=== PATIENT | female | born 1985 | race Caucasian/White ===

== ENCOUNTER → 2017-10-19 | Outpatient (CLI) | payer BC, OTHER ==
[~2017-10-19] MED LIST: ABILIFY5 MG PO; AMBIEN10 M1 PO; AMBIEN5 MG PO; AMOXICILLIN500 M2 PO; AMOXIL500 MG PO; ANAPROX DS550 MG PO; ANTIVERT25 MG PO; ATIVAN1 MG PO; BACTRIM DS 8001 TA1 PO; BIRTH CONTROL1 EAC1 PO; CELEXA10 MG PO; CELEXA40 MG PO; CLARITIN10 MG PO; CYCLOBENZAPRINE5 M3 PO; EFFEXOR XR37.5 M1 PO; FLEXERIL5 MG PO; FLONASE 0.05% 121 EA NAS; HYDROCODONE BIT1 T11 PO; HYDROCODONE PO; IBUPROFEN 30 M800 MG PO; LEVOFLOXACIN500 MG PO; LIDEX0.05% T; MACROBID100 M1 PO; MEDROL DOSEPAK4 MG PO; MOTRIN800 MG PO; Motrin,Rufen800 MG PO; NAPROSYN500 MG PO; NORFLEX100 MG PO; PARAFON FORTE500 MG PO; PYRIDIUM100 MG PO; PYRIDIUM200 M1 PO; ROBAXIN750 MG PO; SEROQUEL25 MG PO; SEROQUEL300 MG PO; TESSALON PERLE100 M1 PO; TOPAMAX2 MG PO; TOPAMAX50 MG PO; TRAZODONE50 MG PO; VICODIN 500 MG-1 TAB PO; ZITHROMAX250 MG PO; ZOFRAN ODT4 MG SL; ZYRTEC10 MG PO
== END ==
LOC: RAD 19:30
DX: M25.511 Pain in right shoulder (principal)

== ENCOUNTER 2017-11-23 01:22 | Emergency (ER) | payer BC, OTHER ==
[~2017-11-23] VITALS: Wt 63.5 kg
[2017-11-23 01:48] LABS: BASO # 0.1 10*3/uL (0.0-0.1); BASO % 0.6 % (0.0-1.0); EOS # 0.1 10*3/uL (0.0-0.4); EOS % 1.6 % (1.0-4.0); HEMATOCRIT 36.8 % (37.0-47.0); HEMOGLOBIN 12.7 g/dl (12.0-16.0); LYMPH # 2.3 10*3/uL (1.3-4.4); LYMPH % 27.8 % (27.0-41.0); MEAN CELL VOLUME 89.1 fl (81.0-99.0); MEAN CORPUSCULAR HGB 30.8 pg (27.0-31.0); MEAN CORPUSCULAR HGB CONC 34.5 g/dl (33.0-37.0); MEAN PLATELET VOLUME 9.5 fl (9.6-12.3); MONO # 0.8 10*3/uL (0.1-1.0); MONO % 9.2 % (3.0-9.0); NEUT % 60.7 % (47.0-73.0); PLATELET COUNT AUTOMATED 206 10*3/uL (130-400); RED BLOOD COUNT 4.13 10*6/uL (4.10-5.10); RED CELL DISTRI WIDTH 12.3 % (0-14.5); WHITE BLOOD COUNT 8.2 10*3/uL (4.8-10.8)
[2017-11-23 02:03] LABS: BUN 17 mg/dl (7-24); CHLORIDE 106 mmol/L (98-107); CREATININE 0.83 mg/dL (0.55-1.02); SODIUM 140 mmol/L (136-145)
[2017-11-23 02:06] LABS: ETHYL ALCOHOL < 3.0 mg/dl (<3)
[2017-11-23 02:08] LABS: B-hCG (QUALITATIVE) NEGATIVE (NEGATIVE)
[2017-11-23 02:09] LABS: ACETAMINOPHEN (TYLENOL) < 2.0 ug/ml (10-30)
[2017-11-23 04:36] LABS: BILIRUBIN NEGATIVE (NEGATIVE); BLOOD 3+ (NEGATIVE); CLARITY SL CLOUDY (CLEAR); COLOR YELLOW (YELLOW); GLUCOSE NEGATIVE (NEGATIVE); KETONE 1+ (NEGATIVE); LEUKO ESTERASE NEGATIVE (NEGATIVE); NITRITE NEGATIVE (NEGATIVE); SPECIFIC GRAVITY 1.025 (1.005-1.030); UROBILINOGEN 0.2 E.U./dl (0.2-1.0)
[2017-11-23 04:45] LABS: URINE AMPHETAMINES < 1000 (1000ng/ml); URINE BARBITURATES < 200 (200ng/ml); URINE BENZODIAZEPINES < 200 (200ng/ml); URINE CANNABINOIDS (THC) < 50 (50ng/ml); URINE COCAINE < 300 (300ng/ml); URINE METHADONE < 300 (300ng/ml); URINE OPIATES < 300 (300ng/ml)
[2017-11-23 04:46] LABS: BACTERIA 2+; EPITHELIAL CELLS 25-30; WBC 0-2 wbc/hpf (0-5)
[2017-11-23 04:47] LABS: URINE PHENCYCLIDINE < 25 (25ng/ml)
== END 2017-11-23 10:50 | disposition home or self-care (01) ==
LOC: ED 01:22
PROVIDERS: Emergency Medicine Emergency Medical Services
DX: F32.9 Major depressive disorder, single episode, unspecified (principal); Z79.899 Other long term (current) drug therapy

== ENCOUNTER 2017-12-12 14:24 | Emergency (ER) | payer BC, OTHER ==
[~2017-12-12] VITALS: Ht 165.1 cm; Wt 63.5 kg
[2017-12-12] MEDS ORDERED: BUSPAR5 MG PO (14:32)
[2017-12-12] MEDS ORDERED: AMOXICILLIN500 M2 PO (15:57)
[2017-12-12] MEDS ORDERED: ZYRTEC10 MG PO (15:57)
== END 2017-12-12 16:00 | disposition home or self-care (01) ==
LOC: ED 14:24
DX: J01.90 Acute sinusitis, unspecified (principal); Z90.89 Acquired absence of other organs; Z79.899 Other long term (current) drug therapy

== ENCOUNTER 2018-05-31 23:09 | Emergency (ER) | payer BC ==
[~2018-05-31] VITALS: Ht 165.1 cm; Wt 62.1 kg
[~2018-05-31 23:09] MED LIST changes: +BUSPAR5 MG PO
[2018-05-31 23:41] LABS: BASO # 0.1 10*3/uL (0.0-0.1); BASO % 1.3 % (0.0-1.0); EOS # 0.2 10*3/uL (0.0-0.4); EOS % 4.1 % (1.0-4.0); HEMATOCRIT 35.1 % (37.0-47.0); HEMOGLOBIN 11.8 g/dl (12.0-16.0); LYMPH # 1.8 10*3/uL (1.3-4.4); MEAN CELL VOLUME 90.7 fl (81.0-99.0); MEAN CORPUSCULAR HGB 30.5 pg (27.0-31.0); MEAN CORPUSCULAR HGB CONC 33.6 g/dl (33.0-37.0); MEAN PLATELET VOLUME 10.2 fl (9.6-12.3); MONO # 0.4 10*3/uL (0.1-1.0); MONO % 9.6 % (3.0-9.0); NEUT # 2.1 10*3/uL (2.3-7.9); NEUT % 45.8 % (47.0-73.0); PLATELET COUNT AUTOMATED 171 10*3/uL (130-400); RED BLOOD COUNT 3.87 10*6/uL (4.10-5.10); RED CELL DISTRI WIDTH 12.4 % (0-14.5); WHITE BLOOD COUNT 4.6 10*3/uL (4.8-10.8)
[2018-05-31 23:53] LABS: BILIRUBIN NEGATIVE (NEGATIVE); BLOOD NEGATIVE (NEGATIVE); CLARITY SL CLOUDY (CLEAR); COLOR YELLOW (YELLOW); GLUCOSE NEGATIVE (NEGATIVE); KETONE NEGATIVE (NEGATIVE); LEUKO ESTERASE 1+ (NEGATIVE); NITRITE NEGATIVE (NEGATIVE); UROBILINOGEN 0.2 E.U./dl (0.2-1.0)
[2018-05-31 23:57] LABS: ALBUMIN 3.6 gm/dl (3.1-4.5); ALKALINE PHOSPHATASE 45 U/L (45-117); BUN 10 mg/dl (7-24); CHLORIDE 112 mmol/L (98-107); CREATININE 0.75 mg/dL (0.55-1.02); POTASSIUM 4.2 mmol/L (3.5-5.1); SGOT/AST 5 IU/L (3-35); SGPT/ALT 14 U/L (12-78); SODIUM 144 mmol/L (136-145); TOTAL PROTEIN 6.7 gm/dL (6.4-8.2)
[2018-05-31 23:59] LABS: BETA-HCG, QUANT < 1.0 mIU/mL (1-3)
[2018-06-01] MEDS ORDERED: SEPTDS PO (00:16)
== END 2018-06-01 00:35 | disposition home or self-care (01) ==
LOC: ED 23:09
PROVIDERS: Student in an Organized Health Care Education/Training Program
DX: N39.0 Urinary tract infection, site not specified (principal); F17.200 Nicotine dependence, unspecified, uncomplicated; Z79.899 Other long term (current) drug therapy; Z98.890 Other specified postprocedural states

== ENCOUNTER 2018-06-29 18:16 | Emergency (ER) | payer BC ==
[~2018-06-29] VITALS: Ht 165.1 cm; Wt 65.8 kg
[~2018-06-29 18:16] MED LIST changes: +SEPTDS PO
[2018-06-29 18:35] LABS: BASO % 0.9 % (0.0-1.0); EOS # 0.1 10*3/uL (0.0-0.4); EOS % 2.5 % (1.0-4.0); HEMATOCRIT 33.8 % (37.0-47.0); HEMOGLOBIN 11.4 g/dl (12.0-16.0); LYMPH # 1.6 10*3/uL (1.3-4.4); LYMPH % 36.5 % (27.0-41.0); MEAN CELL VOLUME 89.4 fl (81.0-99.0); MEAN CORPUSCULAR HGB 30.2 pg (27.0-31.0); MEAN CORPUSCULAR HGB CONC 33.7 g/dl (33.0-37.0); MEAN PLATELET VOLUME 9.5 fl (9.6-12.3); MONO # 0.4 10*3/uL (0.1-1.0); MONO % 9.9 % (3.0-9.0); NEUT # 2.2 10*3/uL (2.3-7.9); PLATELET COUNT AUTOMATED 176 10*3/uL (130-400); RED BLOOD COUNT 3.78 10*6/uL (4.10-5.10); RED CELL DISTRI WIDTH 12.3 % (0-14.5); WHITE BLOOD COUNT 4.3 10*3/uL (4.8-10.8)
[2018-06-29 18:51] LABS: ALBUMIN 3.8 gm/dl (3.1-4.5); ALKALINE PHOSPHATASE 49 U/L (45-117); BUN 8 mg/dl (7-24); CHLORIDE 109 mmol/L (98-107); CREATININE 0.86 mg/dL (0.55-1.02); POTASSIUM 3.7 mmol/L (3.5-5.1); SGOT/AST 7 IU/L (3-35); SGPT/ALT 17 U/L (12-78); SODIUM 140 mmol/L (136-145); TOTAL PROTEIN 6.8 gm/dL (6.4-8.2)
[2018-06-29] MEDS ORDERED: NAPROSYN500 MG PO (19:35)
[2018-06-29] MEDS ORDERED: ZOFRAN4 MG PO (19:35)
[2018-06-29] MEDS ORDERED: MIRALAX POWDER17 G1 PO (19:38)
[2018-06-29 19:48] LABS: BILIRUBIN NEGATIVE (NEGATIVE); BLOOD 2+ (NEGATIVE); CLARITY CLEAR (CLEAR); COLOR YELLOW (YELLOW); GLUCOSE NEGATIVE (NEGATIVE); KETONE NEGATIVE (NEGATIVE); LEUKO ESTERASE NEGATIVE (NEGATIVE); NITRITE NEGATIVE (NEGATIVE); PH 5.5 (5.0-9.0); SPECIFIC GRAVITY <= 1.005 (1.005-1.030); UROBILINOGEN 0.2 E.U./dl (0.2-1.0)
[2018-06-29 19:56] LABS: WBC 0-2 wbc/hpf (0-5)
== END 2018-06-29 20:00 | disposition home or self-care (01) ==
LOC: ED 18:16
PROVIDERS: Nurse Practitioner Family
DX: K59.00 Constipation, unspecified (principal); R10.9 Unspecified abdominal pain; Z90.89 Acquired absence of other organs; Z79.899 Other long term (current) drug therapy

== ENCOUNTER → 2018-10-25 | Outpatient (CLI) | payer MEDICAID ==
[~2018-10-25] MED LIST changes: +MIRALAX POWDER17 G1 PO; +ZOFRAN4 MG PO
== END | disposition home or self-care (01) ==
LOC: RAD 02:22
DX: R10.9 Unspecified abdominal pain (principal); R31.9 Hematuria, unspecified; R30.9 Painful micturition, unspecified

== ENCOUNTER 2019-08-02 03:55 | Emergency (ER) | payer OTHER ==
[~2019-08-02] VITALS: Ht 162.5 cm; Wt 68.0 kg
[2019-08-02 04:15] LABS: BILIRUBIN NEGATIVE (NEGATIVE); BLOOD NEGATIVE (NEGATIVE); CLARITY SL CLOUDY (CLEAR); COLOR YELLOW (YELLOW); GLUCOSE NEGATIVE (NEGATIVE); KETONE TRACE (NEGATIVE); LEUKO ESTERASE 1+ (NEGATIVE); NITRITE POSITIVE (NEGATIVE); SPECIFIC GRAVITY 1.015 (1.005-1.030); UROBILINOGEN 0.2 E.U./dl (0.2-1.0)
[2019-08-02 04:29] LABS: BACTERIA 2+; WBC 21-30 wbc/hpf (0-5)
[2019-08-02] MEDS ORDERED: PYRIDIUM100 MG PO (04:32)
[2019-08-02] MEDS ORDERED: KEFLEX500 M1 PO (04:32)
== END 2019-08-02 04:35 | disposition home or self-care (01) ==
LOC: ED 03:55
PROVIDERS: Physician Assistant
DX: N39.0 Urinary tract infection, site not specified (principal); K59.00 Constipation, unspecified; R11.0 Nausea; Z79.899 Other long term (current) drug therapy

== ENCOUNTER 2019-10-13 18:02 | Emergency (ER) | payer SELFPAY ==
[~2019-10-13] VITALS: Ht 162.5 cm; Wt 68.0 kg
[~2019-10-13 18:02] MED LIST changes: +KEFLEX500 M1 PO
[2019-10-13] MEDS ORDERED: AUGMENTIN 875-875 MG PO (18:58)
== END 2019-10-13 19:30 | disposition home or self-care (01) ==
LOC: ED 18:02
DX: S51.831A Puncture wound without foreign body of right forearm, initial encounter (principal); Z79.899 Other long term (current) drug therapy; Z79.2 Long term (current) use of antibiotics; W55.01XA Bitten by cat, initial encounter; Y93.89 Activity, other specified; Y92.098 Other place in other non-institutional residence as the place of occurrence of the external cause; Y99.8 Other external cause status

== ENCOUNTER 2021-10-15 10:55 | Emergency (ER) | payer OTHER ==
[~2021-10-15 10:55] MED LIST changes: +AUGMENTIN 875-875 MG PO
[2021-10-15 13:29] LABS: BILIRUBIN Negative (Negative); BLOOD 3+ (Negative); CLARITY Turbid (Clear); COLOR Dark Yellow (Yellow); GLUCOSE Negative (Negative); KETONE Trace (Negative); LEUKO ESTERASE 3+ (Negative); NITRITE Negative (Negative); PH 5.5 (4.5-8.0); SPECIFIC GRAVITY 1.025 (1.001-1.030)
[2021-10-15 13:47] LABS: RBC TNTC rbc/hpf (0-2); WBC TNTC wbc/hpf (0-5)
[2021-10-15 13:49] LABS: BACTERIA 2+
[2021-10-15] MEDS ORDERED: PYRIDIUM200 M1 PO (13:58)
[2021-10-15] MEDS ORDERED: SEPTDS PO (13:58)
== END 2021-10-15 14:59 | disposition home or self-care (01) ==
LOC: ED 10:55
PROVIDERS: Emergency Medicine
DX: N39.0 Urinary tract infection, site not specified (principal); Z79.899 Other long term (current) drug therapy

== ENCOUNTER 2021-11-10 13:53 | Emergency (ER) | payer OTHER ==
[~2021-11-10] VITALS: Wt 64.9 kg
[2021-11-10] MEDS ORDERED: FLONASE ALLERG9.9 ML NAS (18:32)
[2021-11-10] MEDS ORDERED: PROVENTIL HFA6.7 GM INH (18:32)
== END 2021-11-10 19:03 | disposition home or self-care (01) ==
LOC: ED 13:53
DX: U07.1 COVID-19 (principal); J06.9 Acute upper respiratory infection, unspecified

== ENCOUNTER → 2021-11-18 | Outpatient (CLI) | payer OTHER ==
[~2021-11-18] MED LIST changes: +FLONASE ALLERG9.9 ML NAS; +PROVENTIL HFA6.7 GM INH
== END | disposition home or self-care (01) ==
LOC: COVID19 14:55
PROVIDERS: ATTEND Student in an Organized Health Care Education/Training Program
DX: U07.1 COVID-19 (principal)

== ENCOUNTER 2022-02-25 20:53 | Emergency (ER) | payer OTHER ==
[~2022-02-25] VITALS: Ht 167.6 cm; Wt 59.9 kg
[2022-02-25 21:21] LABS: BILIRUBIN Negative (Negative); BLOOD Negative (Negative); CLARITY Cloudy (Clear); COLOR Yellow (Yellow); GLUCOSE Negative (Negative); KETONE Trace (Negative); LEUKO ESTERASE Trace (Negative); NITRITE Negative (Negative); SPECIFIC GRAVITY >= 1.030 (1.001-1.030)
[2022-02-25 21:44] LABS: BACTERIA 1+; MUCOUS 1+; WBC 16-20 wbc/hpf (0-5)
[2022-02-25] MEDS ORDERED: CEFUROXIME AXE500 MG PO (22:26)
== END 2022-02-25 22:36 | disposition home or self-care (01) ==
LOC: ED 20:53
PROVIDERS: Physician Assistant
DX: N39.0 Urinary tract infection, site not specified (principal); Z88.2 Allergy status to sulfonamides; Z79.899 Other long term (current) drug therapy; Z90.89 Acquired absence of other organs

== ENCOUNTER 2022-04-25 22:34 | Emergency (ER) | payer OTHER ==
[~2022-04-25] VITALS: Ht 162.5 cm; Wt 65.8 kg
[~2022-04-25 22:34] MED LIST changes: +CEFUROXIME AXE500 MG PO
[2022-04-25] MEDS ORDERED: PHENAZOPYRIDIN200 M1 PO (22:46)
[2022-04-25] MEDS ORDERED: BUPROPION75 MG PO (22:46)
[2022-04-25] MEDS ORDERED: DAYVIGO10 MG PO (22:46)
[2022-04-25 23:07] LABS: BILIRUBIN 1+ (Negative); BLOOD Negative (Negative); CLARITY Clear (Clear); COLOR Orange (Yellow); GLUCOSE Negative (Negative); KETONE Negative (Negative); LEUKO ESTERASE 1+ (Negative); NITRITE Positive (Negative)
[2022-04-25] MEDS ORDERED: MACROBID100 M1 PO (23:09)
[2022-04-25 23:16] LABS: BACTERIA TRACE; EPITHELIAL CELLS 16-20
== END 2022-04-25 23:38 | disposition home or self-care (01) ==
LOC: ED 22:34
PROVIDERS: Emergency Medicine
DX: N39.0 Urinary tract infection, site not specified (principal); Z88.2 Allergy status to sulfonamides; Z79.899 Other long term (current) drug therapy; Z90.89 Acquired absence of other organs

== ENCOUNTER → 2022-06-16 | Outpatient (CLI) | payer OTHER ==
[~2022-06-16] MED LIST changes: +BUPROPION75 MG PO; +DAYVIGO10 MG PO; +PHENAZOPYRIDIN200 M1 PO
== END | disposition home or self-care (01) ==
LOC: RAD 18:36
PROVIDERS: ATTEND Chiropractor Orthopedic
DX: M54.2 Cervicalgia (principal); M54.50 Low back pain, unspecified